=== PATIENT | female | born 1985 | race Caucasian/White ===

== ENCOUNTER 2017-09-18 17:26 | Emergency (ER) | payer OTHER ==
[~2017-09-18] VITALS: Ht 170.2 cm; Wt 72.6 kg
--- NOTE | 2017-09-18 18:14 | PD ---
HPI Chief Complaint Contractions Travel History International Travel<30 Days: No Contact w/Intl Traveler<30Days: No Known Affected Area: No History of Present Illness HPI 32-year-old 001, IUP at 27.6 care uncomplicated per patient report The patient presents complaining of the onset of contractions at 4 PM. She reports that she is feeling as many as 10-12 contractions per hour or up to 4 in a 15 minute time period. The patient is an ER physician. She reports that she started drinking water when she started feeling contractions and they improved with a combination of water and sitting, but would increase when she was standing. She reports that they are better since arriving now that she is drink more water and been resting. She reports good movement. She denies any leaking of fluid or vaginal bleeding. She denies intercourse in the past 24 hours. She has no other complaints except to report mild dysuria. Weeks Gestation: 27 Para: 1 : 3 : 1 History Past Medical History Medical History: Denies Significant Hx Obstetric History Obstetric History x1 SAB x1 Past Surgical History Surgical History: No Previous Surgery Family History Family History: Negative Social History Alcohol Use: No Tobacco Use: No Substance Abuse: No Allergies-Medications (Allergen,Severity, Reaction): Coded Allergies: cefepime (Unverified Allergy, Intermediate, 09/18/17) ceftaroline fosamil (Unverified Allergy, Intermediate, 09/18/17) Home Meds No Active Prescriptions or Reported Meds Review of Systems Except as stated in HPI: all other systems reviewed are Neg Genitourinary: Dysuria Physical Exam Narrative GENERAL: Well-nourished, well-developed patient. SKIN: Warm and dry. HEAD: Normocephalic and atraumatic. EYES: No scleral icterus. No injection or drainage. ENT: No nasal drainage noted. Mucous membranes pink. Airway patent. NECK: Supple, trachea midline. No JVD. CARDIOVASCULAR: Regular rate and rhythm without murmurs, gallops, or rubs. RESPIRATORY: Breath sounds equal bilaterally. No accessory muscle use. BREASTS: Bilateral exam showed no masses , no retractions, no nipple discharge. ABDOMEN/GI: Abdomen soft, non-tender, bowel sounds present, no rebound, no guarding Gravid GENITOURINARY: External Genitalia: intact and normal in appearance. No cervical or vaginal masses were appreciated. Physiologic discharge was noted. Grossly normal rugated was noted. SVE closed/thick/high, posterior. Repeat vaginal examination was performed 2 hours and was unchanged from prior. FHT's: heart tones are in the 130s with moderate long-term variability, good accelerations, no decelerations. heart tracing is reassuring and appropriate for gestational age with a category 1 tracing and in NST is reactive for gestational age. EXTREMITIES: No cyanosis or edema. BACK: Nontender without obvious deformity. No CVA tenderness. NEUROLOGICAL: Awake and alert. Motor and sensory grossly within normal limits. Five out of 5 muscle strength in all muscle groups. Normal speech. Psychiatric: Grossly normal memory and affect Musculoskeletal: Jena normal range of motion, gait, muscle strength Data Data Orders Orders Vital Signs (Adult) .ON ADMISSION (09/18/17 18:13) ^ Labor Status (09/18/17 18:) Urinalysis - C+S If Indicated (09/18/17 18:13) ^ Hydration (09/18/17 18:) Fibronectin (09/18/17 18:13) MDM Plan Assessment/plan: 1. IUP at 27.6 2. Threatened labor: No evidence of labor with negative fibronectin and unchanged vaginal exam over a 2 hour observation. Patient received IV hydration but was without complete resolution of contractions. Terbutaline was offered for symptomatic relief, but declined by patient. Strict labor precautions were given. Encouraged good hydration and opportunities for rest during work and at home, light activity until follow-up with primary OB. Discussed with Dr. Yang who offered the patient betamethasone; I discussed the potential benefits with the patient, but she prefers to wait and not receive steroids at this time as her cervix is closed and fibronectin is negative. 3. well-being: Reassuring testing with category 1 heart rate tracing and heart rate that is reassuring and appropriate for gestational age. kick counts daily. 4. UA: UA with moderate leukocyte esterase, 9 wbc's, and many bacteria, however also with 17 squamous cells, urine culture is being performed but will start Macrobid 100 mg by mouth twice a day 5. Follow-up with primary OB in 2-3 days or sooner if needed. Scripts No Active Prescriptions or Reported Meds Guadalupe Nath MD Sep 18, 2017 18:14
[2017-09-18 19:00] VITALS: RESP 18
[2017-09-18 19:00] LABS: BACTERIA, URINE MANY /hpf; BLOOD, URINE NEG (NEG); COMMENT (UR) CULTURE INDICATED; CULTURE IF INDICATED CULTURE INDICATED; GLUCOSE,URINE NEG (NEG); HYALINE CAST, URINE 1 /lpf (RARE); KETONE, URINE NEG (NEG); NITRITE,URINE NEG (NEG); PH, URINE 6.5 (5.0-8.5); SQUAMOUS EPITHELIAL CELL URINE 17 /hpf (0-5); URINE COLOR LIGHT-YELLOW (YELLW/STRAW)
[2017-09-18] MEDS ORDERED: LACTATED RINGER'S 1000 ML INJ 1,000 ML IV SCH (19:01)
[2017-09-18 19:30] VITALS: RESP 18
[2017-09-18 20:00] VITALS: RESP 18
[2017-09-18 20:30] VITALS: RESP 18
--- NOTE | 2017-09-19 00:21 | PD ---
MDM Diagnosis Diagnosis: Primary Impression: 27 weeks gestation of Additional Impression: False labor before 37 completed weeks of gestation in second trimester Disposition: 01 DISCHARGE HOME Condition: Good Scripts No Active Prescriptions or Reported Meds Patient Instructions: General Instructions, Labor (ED), Abdominal Pain in (ED), Urinary Tract Infection in (ED) Departure Forms: Tests/Procedures Guadalupe Nath MD Sep 19, 2017 00:21
== END 2017-09-19 00:22 | disposition home or self-care (01) ==
LOC: HOBED 17:26
DX: O47.02 False labor before 37 completed weeks of gestation, second trimester (principal); B96.89 Other specified bacterial agents as the cause of diseases classified elsewhere; Z3A.27 27 weeks gestation of pregnancy
CPT/HCPCS: 81001; 82731; 87086; 99284; J7120

== ENCOUNTER 2017-11-19 17:48 | Emergency (ER) | payer OTHER ==
--- NOTE | 2017-11-19 18:19 | PD ---
HPI Chief Complaint Contractions Date Seen: Nov 19, 2017 Time Seen: 18:13 Travel History International Travel<30 Days: No Contact w/Intl Traveler<30Days: No Known Affected Area: No History of Present Illness HPI Patient is 32-year-old white female A1 at 36-37 weeks presents complaining of contraction activity. She denies leakage of fluid or bleeding. heart rate tracing is reactive. She is triston every 2-3 minutes that are uncomfortable occasionally will take her breath away , although overall there not terribly painful Weeks Gestation: 36 Para: 1 : 3 History Obstetric History Obstetric History One vaginal delivery 1 early loss Social History Narrative Social History she is an ER physician here Alcohol Use: No Tobacco Use: No Substance Abuse: No Allergies-Medications (Allergen,Severity, Reaction): Coded Allergies: cefepime (Unverified Allergy, Intermediate, 09/18/17) ceftaroline fosamil (Unverified Allergy, Intermediate, 09/18/17) Home Meds No Active Prescriptions or Reported Meds Review of Systems General / Constitutional: No: Fever, Weight Gain, Chills, Other Eyes: No: Diploplia, Blurred Vision, Visual changes, Pain, Photophobia HENT: No: Headaches, Vertigo, Lightheadedness Cardiovascular: No: Irregular Rhythm, Chest Pain or Discomfort, Palpitations, Tachycardia, Syncope, Varicosities, Edema, Cyanosis Respiratory: No: Cough, Short of Breath, Other Gastrointestinal: No: Nausea, Vomiting, Diarrhea Genitourinary: No: Decreased Urinary Output, Oliguria Musculoskeletal: No: Limited ROM, Weakness, Cramping, Edema, Pain Skin: No Rash, No Itching, No Dryness, No Lumps, No Change in Pigmentation, No Change in Nails, No Alopecia, No Lesions Neurologic: No: Weakness, Dizziness, Syncope, Focal Abnormalities, Coordination Problem, Headache, Slurred Speech, Seizures Psychiatric: No: Depression, Suicidal Ideations, Homicidal Ideation Endocrine: No: Heat Intolerance, Cold Intolerance, Polydipsia, Polyuria, Other Physical Exam Narrative GENERAL: Well-nourished, well-developed patient. SKIN: Warm and dry. HEAD: Normocephalic and atraumatic. EYES: No scleral icterus. No injection or drainage. ENT: No nasal drainage noted. Mucous membranes pink. Airway patent. NECK: Supple, trachea midline. No JVD. CARDIOVASCULAR: Regular rate and rhythm without murmurs, gallops, or rubs. RESPIRATORY: Breath sounds equal bilaterally. No accessory muscle use. BREASTS: Bilateral exam showed no masses , no retractions, no nipple discharge. ABDOMEN/GI: Abdomen soft, non-tender, bowel sounds present, no rebound, no guarding Gravid to [36-] weeks size Fundal Height: [36-] GENITOURINARY: External Genitalia: intact and normal in appearance BUS glands: [-] Cervix: [-post] Dilatation: [2-3-] Effacement: [-thick] Station: [-3] Presentation: [vtx-] Membranes: [intact ] Uterine Contractions: [q 3 min-] FHT's: Category: [1-] Baseline: [133-] Reactive: [-R] Variability: [mod-] Decels: [-none] EXTREMITIES: No cyanosis or edema. BACK: Nontender without obvious deformity. No CVA tenderness. NEUROLOGICAL: Awake and alert. Motor and sensory grossly within normal limits. Five out of 5 muscle strength in all muscle groups. Normal speech. MDM Interpretation(s) Patient is 32-year-old white female A1 at 36-37 weeks presents complaining of contraction activity. Patient is triston every 2-3 minutes. Cervix recently checked was 2 cm/ thick, tonight cervix 2-3 /thick/ posterior vertex heart rate tracing is reactive, and she is triston on the monitor Plan Plan to discharge patient home to observation. If pains get worse she is returned or if she has a leakage of fluid or bleeding. Otherwise she will follow up with Dr. Yang her OB provider Diagnosis Diagnosis: Primary Impression: Andrés Medrano contractions Additional Impression: 36 weeks gestation of Disposition: DISCHARGE HOME Condition: Stable Scripts No Active Prescriptions or Reported Meds Yo Acevedo II, MD Nov 19, 2017 18:19
== END 2017-11-19 18:38 | disposition home or self-care (01) ==
LOC: HOBED 17:48
DX: O47.03 False labor before 37 completed weeks of gestation, third trimester (principal); Z3A.36 36 weeks gestation of pregnancy
CPT/HCPCS: 59020

== ENCOUNTER 2017-12-06 09:09 | Inpatient (IN) | payer OTHER ==
[2017-12-06] VITALS (46 sets, daily range): BP systolic 104–125; BP diastolic 65–92; PULSE 75–184; RESP 0–20; TEMP 97.6–98.7; O2SAT 98
[2017-12-06] MEDS: SODIUM CHLORIDE 0.9% FLUSH 10 ML FLUSH IV FLUSH SCH (05:45)
--- NOTE | 2017-12-06 10:25 | MH ---
cc: JEAN PIERRE DALE DATE OF ADMISSION: 12/06/2017 DATE OF 1985 INDICATION Artificial rupture of membranes after 39 weeks and augmentation of labor if indicated. HISTORY OF THE PRESENT CONDITION The patient is a pleasant 32-year-old white female 2, para 1-0-0-1 with LMP 03/07/2017 and EDC December 12, 2017 currently at 39-0/7 weeks. She is at 3 cm, 50%, -1 station. The baby is in the 89th percentile. She is having mild contractions. She is normotensive, not edematous and she has no protein in the urine. There has been no leaking or bleeding and no nausea, vomiting, blurred vision, right upper quadrant tenderness. Her care began at 13 weeks and has been uneventful with no labor, hypertension or gestational diabetes. The baby has been shown to be fairly large and 89 percentile at the last evaluation. She is Group B strep positive. Her blood type was A+. Her hemoglobin was 11. Her Pap smear was normal. She is immune to [place] measles and chickenpox. Her cultures were all negative. Drug screen is negative. Hep C antibody was negative. Her Glucola was 129. Her total weight gain has only been 23 pounds. The is male, vertex with anterior placenta and her pelvis is proven to 6 pounds 14 ounces. PHYSICAL EXAMINATION GENERAL: On physical she is a slim white female in no acute distress. VITAL SIGNS: She is afebrile with stable vital signs. LUNGS: Her lungs were clear to auscultation. CARDIOVASCULAR: Heart rate and rhythm are regular. BREASTS: Without dominant mass. ABDOMEN: Benign. PELVIC: Perineum is estrogenized. Cervix is 3 cm, 50%, -1. Fundal height is 39 and estimated weight is 7-1/2 pounds. EXTREMITIES: Unremarkable. IMPRESSION Term intrauterine with Group B strep positive with a highly favorable Shrestha score after 39 completed weeks. PLAN The plan is to proceed with a rupture of membranes and augmentation if indicated. Risks, benefits, expectations and alternatives have been discussed with Domi and Lon and they decided to proceed. Jean Pierre Dale MD PPC/KK /4:28 PM /10:11 AM
[2017-12-06 10:27] LABS: AUTOMATED NEUTROPHIL # 9.4 TH/MM3 (1.8-7.7); BASOPHIL # 0.1 TH/MM3 (0-0.2); BASOPHIL % 0.6 % (0.0-2.0); EOSINOPHIL # 0.1 TH/MM3 (0-0.4); EOSINOPHIL % 0.6 % (0.0-4.0); HEMATOCRIT 33.8 % (35.0-46.0); HEMOGLOBIN 10.8 GM/DL (11.6-15.3); LYMPH % 16.3 % (9.0-44.0); LYMPHOCYTE # 2.1 TH/MM3 (1.0-4.8); MEAN CELL VOLUME 81.4 FL (80.0-100.0); MEAN CORPUSCULAR HEMOGLOBIN 25.9 PG (27.0-34.0); MEAN CORPUSCULAR HGB CONC 31.8 % (32.0-36.0); MEAN PLATELET VOLUME 11.3 FL (7.0-11.0); MONO % 8.6 % (0.0-8.0); MONOCYTE # 1.1 TH/MM3 (0-0.9); NEUT % 73.9 % (16.0-70.0); PLATELET COUNT 154 TH/MM3 (150-450); RED BLOOD COUNT 4.15 MIL/MM3 (4.00-5.30); RED CELL DISTRIBUTION WIDTH 14.4 % (11.6-17.2); WHITE BLOOD COUNT 12.7 TH/MM3 (4.0-11.0)
[2017-12-06] MEDS ORDERED: OXYTOCIN 30 UNITS/NS 500ML PREMIX IV PRN (10:45)
[2017-12-06] MEDS ORDERED: MINERAL OIL 10 ML VIAL TOPICAL PRN (10:45)
[2017-12-06] MEDS ORDERED: CITRIC ACID-SODIUM CITRATE LIQ 30 ML UDC PO SCH (10:45)
[2017-12-06] MEDS ORDERED: LIDOCAINE HCL 1% 50 ML VIAL I-DERMAL PRN (10:45)
[2017-12-06] MEDS ORDERED: LIDOCAINE HCL 1% 50 ML VIAL INFIL PRN (10:45)
[2017-12-06] MEDS ORDERED: OXYTOCIN 30 UNITS 500ML PREMIX IV ONE (10:45)
[2017-12-06] MEDS ORDERED: NS 500 ML BOLUS IV PRN (10:45)
[2017-12-06] MEDS ORDERED: NS 1000 ML IV PRN (10:45)
[2017-12-06] MEDS ORDERED: LACTATED RINGER'S 1000 ML BOLUS IV PRN (10:45)
[2017-12-06 10:46] LABS: BACTERIA, URINE OCC /hpf; BILIRUBIN, URINE NEG (NEG); BLOOD, URINE TRACE (NEG); GLUCOSE,URINE NEG (NEG); KETONE, URINE NEG (NEG); MUCUS URINE FEW /lpf (OCC); NITRITE,URINE NEG (NEG); SQUAMOUS EPITHELIAL CELL URINE 5 /hpf (0-5); URINE COLOR YELLOW (YELLW/STRAW); URINE LEUKOCYTE ESTERASE SMALL (NEG)
[2017-12-06] MEDS ORDERED: LACTATED RINGER'S 1000 ML IV SCH (11:00)
--- NOTE | 2017-12-06 12:54 | PD.LABORPN ---
Subjective Subjective comfortable on the birthing ball Objective Vital Signs Vital Signs Date Time Temp Pulse Resp B/P (MAP) Pulse Ox O2 Delivery O2 Flow Rate FiO2 12/06/17 12:21 94 116/79 (91) 12/06/17 11:38 92 121/81 (94) 12/06/17 10:57 92 120/75 (90) 12/06/17 09:45 98.7 12/06/17 09:45 18 12/06/17 09:34 95 114/71 (85) Objective was 6/60%/ballotable and floating away this am on admission AROM was not appropriate and pitocin started now on 3 mu/min strip category one after three hours on the birthing ball is -2 and amenable to AROM clear copious fluid can continue with ball until desires epidural Gest Age Assessed Date: Dec 06, 2017 Gest Age Assessed Time: 12:53 Pt started active labor?: Yes Active labor start date: Dec 06, 2017 Active labor start time: 09:00 Medical induction of labor?: No Artificial rupture of membrane: Yes Artificial ROM date: Dec 06, 2017 Artifical ROM time: 12:54 Assessment/Plan Assessment and Plan anticipate epidural Veena Yang MD Dec 06, 2017 12:54
[2017-12-06] MEDS ORDERED: fentaNYL 2MCG-BUPIV 0.125% INJ 100 ML ONE (13:46)
[2017-12-06] MEDS ORDERED: LIDOCAINE HCL 1% 20 ML VIAL ONE (15:59)
[2017-12-06] MEDS ORDERED: MEASLES, MUMPS, RUBELLA VACCINE 0.5 ML VIAL SQ ONE (16:00)
[2017-12-06] MEDS ORDERED: DIPHTH/TETANUS/ACEL PERTUSSIS (BOOSTER) 0.5 ML VIAL/PFS IM ONE (16:00)
[2017-12-06] MEDS ORDERED: PENICILLIN G POT 5,000,000 UNITS/NS 100 ML(Mini-Bag Plus) IV ONE ×2 (16:00)
--- NOTE | 2017-12-06 16:34 | PD.OB.DELI ---
Weeks gestation: 39 Gest age assessed date: Dec 06, 2017 Gest age assessed time: 16:33 Pt started active labor?: Yes Active labor start date: Dec 06, 2017 Active labor start time: 09:00 Medical induction of labor?: No Artificial rupture of membrane: Yes Artificial ROM date: Dec 06, 2017 Artifical ROM time: 12:54 Anesthesia: Epidural Episiotomy: None Vaginal Delivery: Normal Presentation: Occiput anterior Nuchal Cord: None Delayed cord clamping (45 sec): Yes Infant: Male Delivery date: Dec 06, 2017 Delivery time: 16:33 One Minute : 8 Five Minute : 9 Placenta: Manual removal, Intact, Uterus explored +, 3 vessel cord Laceration: No lacerations Estimated blood loss: 200 Additional Information Due to a miscommunication, penicillin G only given in time for one dose. Veena Yang MD Dec 06, 2017 16:34
[2017-12-06] MEDS ORDERED: OXYTOCIN 30 UNITS-500ML PREMIX 500 ML IV SCH (16:45)
[2017-12-06] MEDS ORDERED: SODIUM CHLORIDE 0.9% FLUSH 10 ML FLUSH IV FLUSH PRN (16:45)
[2017-12-06] MEDS ORDERED: ZOLPIDEM TARTRATE 5 MG TAB PO PRN (16:45)
[2017-12-06] MEDS ORDERED: ONDANSETRON ODT 4 MG TAB PO PRN (17:00)
[2017-12-06] MEDS ORDERED: ALUMINUM/MAGNESIUM/SIMETH 30 ML CUP PO PRN (17:00)
[2017-12-06] MEDS ORDERED: BENZOCAINE 20% TOPICAL SPRAY 60 ML CAN TOPICAL PRN (17:00)
[2017-12-06] MEDS ORDERED: NO SYSTEM NARCOTICS PRN (17:15)
[2017-12-06] MEDS ORDERED: fentaNYL 2MCG-BUPIV 0.125% 100 ML EPIDURAL SCH (17:15)
[2017-12-06] MEDS ORDERED: ePHEDrine/NS 25 MG/5 ML SYRINGE IV PUSH PRN (17:15)
[2017-12-06] MEDS ORDERED: DO NOT ADMINISTER ANTICOAGULANTS PRN (17:15)
[2017-12-06] MEDS ORDERED: WITCH HAZEL 50%/GLYCERIN 12.5% 40 PAD JAR TOPICAL PRN (18:00)
[2017-12-06] MEDS: DOCUSATE SODIUM 50 MG/SENNA 8.6 MG TAB PO PRN (20:00)
[2017-12-06] MEDS: IBUPROFEN 800 MG TAB PO PRN (20:00)
[2017-12-06] MEDS ORDERED: PENICILLIN G POT 2,500,000 UNITS/NS 100 ML IV SCH ×2 (20:00)
[2017-12-06] MEDS: ACETAMINOPHEN 325 MG TAB PO PRN (20:01)
[2017-12-07] MEDS: IBUPROFEN 800 MG TAB PO PRN ×3 (04:54→20:07)
--- NOTE | 2017-12-07 07:26 | HHI.OB ---
Subjective Post Day: 1 Remarks doing well, ambulating, voiding, TPO, VB > menses, no clots is decreasing in volume. Objective Vitals/I&O Vital Signs Date Time Temp Pulse Resp B/P (MAP) Pulse Ox O2 Delivery O2 Flow Rate FiO2 12/06/17 19:45 98.0 86 18 111/70 (84) 98 12/06/17 18:15 95 123/81 (95) 12/06/17 18:00 85 0 117/76 (90) 12/06/17 17:45 123 111/80 (90) 12/06/17 17:30 79 116/79 (91) 12/06/17 17:15 97.6 20 12/06/17 17:15 82 121/81 (94) 12/06/17 17:01 184 115/92 (100) 12/06/17 16:45 110 125/90 (102) 12/06/17 16:35 83 108/75 (86) 12/06/17 16:30 18 12/06/17 16:00 112/90 (97) 12/06/17 15:55 90 12/06/17 15:50 94 12/06/17 15:45 78 12/06/17 15:45 83 114/74 (87) 12/06/17 15:40 81 12/06/17 15:35 81 12/06/17 15:30 77 104/67 (79) 12/06/17 15:30 89 12/06/17 15:25 83 12/06/17 15:20 81 12/06/17 15:15 92 104/82 (89) 12/06/17 15:15 86 12/06/17 15:10 93 12/06/17 15:05 84 12/06/17 15:00 83 105/76 (86) 12/06/17 15:00 86 12/06/17 14:55 84 12/06/17 14:50 94 12/06/17 14:46 91 106/65 (79) 12/06/17 14:45 86 12/06/17 14:40 89 12/06/17 14:35 83 110/72 (85) 12/06/17 14:35 82 12/06/17 14:30 82 12/06/17 14:30 86 108/69 (82) 12/06/17 14:30 98.1 18 12/06/17 14:25 84 106/70 (82) 12/06/17 14:25 75 12/06/17 14:20 84 12/06/17 14:20 89 112/74 (87) 12/06/17 14:15 88 110/68 (82) 12/06/17 14:15 92 12/06/17 14:10 87 108/69 (82) 12/06/17 14:10 90 12/06/17 14:05 88 12/06/17 14:05 93 117/80 (92) 12/06/17 14:00 84 124/90 (101) 12/06/17 14:00 87 12/06/17 13:55 86 12/06/17 13:29 85 119/84 (96) 12/06/17 12:52 86 115/73 (87) 12/06/17 12:45 18 12/06/17 12:30 98.7 12/06/17 12:21 94 116/79 (91) 12/06/17 11:38 92 121/81 (94) 12/06/17 10:57 92 120/75 (90) 12/06/17 09:45 98.7 12/06/17 09:45 18 12/06/17 09:34 95 114/71 (85) Objective Remarks GENERAL: Well-nourished, well-developed patient. CARDIOVASCULAR: Regular rate and rhythm without murmurs, gallops, or rubs. RESPIRATORY: Breath sounds equal bilaterally. No accessory muscle use. ABDOMEN/GI: Abdomen soft, non-tender. Fundus: Firm, non-tender at umbilicus. GENITOURINARY: Light to moderate bleeding. EXTREMITIES: No cyanosis or edema, non-tender, without signs of DVT. Medications and IVs Current Medications Medications (Trade) Dose Ordered Sig/Melanie Route Start Time Stop Time Status Last Admin Oxytocin 500 ml @ 0 mls/hr TITRATE PRN IV 12/06/17 10:45 12/06/17 10:50 Lactated Ringer's 1,000 ml @ 125 mls/hr Q8H IV 12/06/17 11:00 12/06/17 10:46 Lactated Ringer's 1,000 ml @ 3,000 mls/hr BOLUS PRN IV 12/06/17 10:45 Sodium Chloride 500 ml @ 1,000 mls/hr BOLUS PRN IV 12/06/17 10:45 Sodium Chloride 1,000 ml @ 100 mls/hr Q10H PRN IV 12/06/17 10:45 (Bicitra Liq) 30 ml STAMPING DIE MAKER BENCH PO 12/06/17 10:45 12/09/17 10:44 (fentaNYL INJ) 50 mcg Q1H PRN IV PUSH 12/06/17 10:45 (fentaNYL INJ) 100 mcg Q1H PRN IV PUSH 12/06/17 10:45 (Muri-Lube Oil) 10 ml UNSCH PRN TOPICAL 12/06/17 10:45 Penicillin G Potassium [id number] units/Sodium Chloride 100 ml @ 200 mls/hr Q4H IV 12/06/17 20:00 (NS Flush) 2 ml BID IV FLUSH 12/06/17 21:00 (NS Flush) 2 ml UNSCH PRN IV FLUSH 12/06/17 16:45 (Tylenol) 650 mg Q4H PRN PO 12/06/17 17:00 12/06/17 20:01 (Motrin) 800 mg Q8H PRN PO 12/06/17 17:00 12/07/17 04:54 (Americaine 20% Top Spr) 1 spray Q4H PRN TOPICAL 12/06/17 17:00 12/06/17 21:36 (Tucks Pads) 1 applic QID PRN TOPICAL 12/06/17 18:00 12/06/17 21:36 (Carmita-Colace) 2 tab Q12HR PRN PO 12/06/17 21:00 12/06/17 20:00 (Ambien) 5 mg HS PRN PO 12/06/17 16:45 (Mag-Al Plus Susp Liq) 15 ml Q8H PRN PO 12/06/17 17:00 (Zofran Odt) 4 mg Q6H PRN PO 12/06/17 17:00 Miscellaneous Information No systemic narcotics to be given except... UNSCH PRN .XX 12/06/17 17:15 12/07/17 17:14 Miscellaneous Information DO NOT ADMINISTER ANY ANTICOAGUL... UNSCH PRN .XX 12/06/17 17:15 12/07/17 17:14 Fentanyl/ Bupivacaine HCl 100 ml @ 0 mls/hr TITRATE EPIDURAL 12/06/17 17:15 (ePHEDrine/NS 25 MG/5 ML SYR) 10 mg UNSCH PRN IV PUSH 12/06/17 17:15 12/07/17 17:14 Assessment/Plan Assessment and Plan 32 yo s/p at 39w 1. PPD #1: AF, VSS, anticipate d/c home tomorrow, baby being monitoring b/c mom GBS pos, not on abs, plan for circ, consented today, plan for later today or tomorrow. Matthew Black MD Dec 07, 2017 07:26
[2017-12-07] MEDS ORDERED: IBUP-232 PO (07:28)
--- NOTE | 2017-12-07 07:28 | HHI.DCPOC ---
Discharge Care Plan Diagnosis: (1) Active labor at term (2) Vaginal delivery Your Health Problems Are: Vaginal delivery Report Symptoms to Your Doctor -Temperature above 100.5 degrees -Redness, of incision or excessive or foul smelling drainage -Unusual pain or calf pain -Increased vaginal bleeding -Painful or difficulty urinating -Feelings of extreme sadness or anxiety after 2 weeks Goals to Promote Your Health * To prevent worsening of your condition and complications * To maintain your health at the optimal level Directions to Meet Your Goals Take your medications as prescribed Follow your dietary instruction Follow activity as directed Ensure plenty of rest for recovery Drink fluids for hydration Keep your appointments as scheduled Take your immunizations and boosters as scheduled If your symptoms worsen call your PCP, if no PCP go to Urgent Care Center or Emergency Room Smoking is Dangerous to Your Health. Avoid second hand smoke Call the 24-hour crisis hotline for domestic abuse at Matthew Black MD Dec 07, 2017 07:28
[2017-12-07] MEDS: ACETAMINOPHEN 325 MG TAB PO PRN ×3 (07:50→20:06)
[2017-12-07 08:00] VITALS: BP 100/61; PULSE 88; RESP 16; TEMP 97.7; O2SAT 98
[2017-12-07] MEDS: SODIUM CHLORIDE 0.9% FLUSH 10 ML FLUSH IV FLUSH SCH (09:00)
[2017-12-07 19:00] VITALS: BP 107/74; PULSE 80; RESP 16; TEMP 97.8
[2017-12-07 20:00] VITALS: BP 107/74; PULSE 80; RESP 16; TEMP 97.8
[2017-12-08] MEDS: SODIUM CHLORIDE 0.9% FLUSH 10 ML FLUSH IV FLUSH SCH (07:12)
[2017-12-08 08:00] VITALS: BP 109/72; PULSE 82; RESP 18; TEMP 98.2; O2SAT 95
--- NOTE | 2017-12-08 08:06 | HHI.OB ---
Subjective Post Day: 1 Remarks doing well, VB < menses, ready for d/c Objective Vitals/I&O Vital Signs Date Time Temp Pulse Resp B/P (MAP) Pulse Ox O2 Delivery O2 Flow Rate FiO2 12/07/17 20:00 97.8 80 16 107/74 (85) 12/07/17 19:00 97.8 80 16 107/74 (85) Objective Remarks GENERAL: Well-nourished, well-developed patient. CARDIOVASCULAR: Regular rate and rhythm without murmurs, gallops, or rubs. RESPIRATORY: Breath sounds equal bilaterally. No accessory muscle use. ABDOMEN/GI: Abdomen soft, non-tender. Fundus: Firm, non-tender at umbilicus. GENITOURINARY: Light to moderate bleeding. EXTREMITIES: No cyanosis or edema, non-tender, without signs of DVT. Medications and IVs Current Medications Medications (Trade) Dose Ordered Sig/Melanie Route Start Time Stop Time Status Last Admin Oxytocin 500 ml @ 0 mls/hr TITRATE PRN IV 12/06/17 10:45 12/06/17 10:50 Lactated Ringer's 1,000 ml @ 125 mls/hr Q8H IV 12/06/17 11:00 12/06/17 10:46 Lactated Ringer's 1,000 ml @ 3,000 mls/hr BOLUS PRN IV 12/06/17 10:45 Sodium Chloride 500 ml @ 1,000 mls/hr BOLUS PRN IV 12/06/17 10:45 Sodium Chloride 1,000 ml @ 100 mls/hr Q10H PRN IV 12/06/17 10:45 (Bicitra Liq) 30 ml INFORMATION STRATEGIST PO 12/06/17 10:45 12/09/17 10:44 (fentaNYL INJ) 50 mcg Q1H PRN IV PUSH 12/06/17 10:45 (fentaNYL INJ) 100 mcg Q1H PRN IV PUSH 12/06/17 10:45 (Muri-Lube Oil) 10 ml UNSCH PRN TOPICAL 12/06/17 10:45 (NS Flush) 2 ml BID IV FLUSH 12/06/17 21:00 (NS Flush) 2 ml UNSCH PRN IV FLUSH 12/06/17 16:45 (Tylenol) 650 mg Q4H PRN PO 12/06/17 17:00 12/07/17 20:06 (Motrin) 800 mg Q8H PRN PO 12/06/17 17:00 12/07/17 20:07 (Americaine 20% Top Spr) 1 spray Q4H PRN TOPICAL 12/06/17 17:00 12/06/17 21:36 (Tucks Pads) 1 applic QID PRN TOPICAL 12/06/17 18:00 12/06/17 21:36 (Carmita-Colace) 2 tab Q12HR PRN PO 12/06/17 21:00 12/06/17 20:00 (Ambien) 5 mg HS PRN PO 12/06/17 16:45 (Mag-Al Plus Susp Liq) 15 ml Q8H PRN PO 12/06/17 17:00 (Zofran Odt) 4 mg Q6H PRN PO 12/06/17 17:00 Fentanyl/ Bupivacaine HCl 100 ml @ 0 mls/hr TITRATE EPIDURAL 12/06/17 17:15 Assessment/Plan Assessment and Plan 32 yo s/p at 39w 1. PPD #1: AF, VSS, anticipate d/c home tomorrow, baby being monitoring b/c mom GBS pos, not on abs, plan for circ, consented today, plan for later today or tomorrow. Matthew Black MD Dec 08, 2017 08:06
[2017-12-08] MEDS: IBUPROFEN 800 MG TAB PO PRN (08:12)
[2017-12-08] MEDS: DOCUSATE SODIUM 50 MG/SENNA 8.6 MG TAB PO PRN (08:12)
== END 2017-12-08 15:21 | disposition home or self-care (01) | DRG 775 ==
LOC: H2EA 09:09 → H1EA 19:48
PROVIDERS: ADMIT Obstetrics & Gynecology; ATTEND Obstetrics & Gynecology
PROC: 10E0XZZ Delivery of Products of Conception, External Approach (ICD-10-PCS; principal; 2017-12-06)
PROC: 10907ZC Drainage of Amniotic Fluid, Therapeutic from Products of Conception, Via Natural or Artificial Opening (ICD-10-PCS; 2017-12-06)
DX: O99.824 Streptococcus B carrier state complicating childbirth (principal); Z37.0 Single live birth; Z3A.39 39 weeks gestation of pregnancy
CPT/HCPCS: 59025; 80307; 81001; 85025; 86900; 86901; 90715; J2540; J2590; J7120